=== PATIENT | male | born 2000 | race Caucasian/White ===

== ENCOUNTER 2021-12-27 02:49 | Emergency (ER) | payer SELFPAY | END 2021-12-27 04:06 | disposition home or self-care (01) | LOC: ER1 02:49 | DX: S41.111A Laceration without foreign body of right upper arm, initial encounter (principal); W26.8XXA Contact with other sharp object(s), not elsewhere classified, initial encounter; Y92.009 Unspecified place in unspecified non-institutional (private) residence as the place of occurrence of the external cause | CPT/HCPCS: 12001; 99283 ==

== ENCOUNTER 2022-06-09 20:27 | Emergency (ER) | payer OTHER ==
[2022-06-09 21:27] LABS: HEMOGLOBIN 13.1 gm/dl (14.0-17.5); RED BLOOD COUNT 4.25 M/UL (4.20-5.50); WHITE BLOOD COUNT 8.4 K/UL (4.5-11.0)
[2022-06-09 21:49] LABS: BUN/CREATININE RATIO 15 (0-10)
[2022-06-09] MEDS ORDERED: CLEOCIN HCL300 MG PO (23:38)
== END 2022-06-09 23:46 | disposition home or self-care (01) ==
LOC: ER1 20:27
PROVIDERS: Nurse Practitioner
DX: L02.01 Cutaneous abscess of face (principal); F17.210 Nicotine dependence, cigarettes, uncomplicated
CPT/HCPCS: 10060; 70487; 80053; 81001; 85025; 85652; 86140; 99284; Q9967